=== PATIENT | male | born 1960 | race Caucasian/White ===

== ENCOUNTER → 2020-05-16 | Outpatient (CLI) | payer OTHER ==
[~2020-05-16] MED LIST: ALLO100 PO; ALLO300; LEVSOD125 PO; LEVSOD50 PO; LISI5 PO; PRAM.125 PO; SERT100 PO
== END | disposition home or self-care (01) ==
LOC: LAB SHORT 18:07 → LAB EV 18:07
DX: L89.90 Pressure ulcer of unspecified site, unspecified stage (principal)
CPT/HCPCS: 87070; 87077; 87147; 87186; 87205